=== PATIENT | male | born 1980 ===

== ENCOUNTER 2022-03-13 15:41 | Emergency (ER) | payer MEDICAID, OTHER ==
[~2022-03-13] VITALS: Ht 162.6 cm; Wt 73.0 kg
[2022-03-13 19:30] VITALS: BP 183/111
== END 2022-03-13 20:24 | disposition home or self-care (01) ==
LOC: ER 15:41
DX: J06.9 Acute upper respiratory infection, unspecified (principal); I10 Essential (primary) hypertension
CPT/HCPCS: 71046